=== PATIENT | male | born 1970 | race Hispanic/Latino ===

== ENCOUNTER 2020-08-05 10:07 | Emergency (ER) | payer OTHER ==
[2020-08-05 10:38] LABS: EOSINOPHILS % (AUTO) 1.3 % (0.0-8.0); HEMATOCRIT 43.2 % (42-54); LYMPHOCYTES % (AUTO) 14.2 % (21.0-51.0); MEAN CORPUSCULAR HEMOGLOBIN 32.5 pg (27.0-33.0); MEAN CORPUSCULAR VOLUME 95.6 fL (79-99); MONOCYTES % (AUTO) 6.9 % (3.0-13.0); NEUTROPHILS % (AUTO) 76.2 % (40.0-77.0); PLATELET COUNT (AUTO) 218 K/uL (130-400); RED BLOOD CELL COUNT(AUTO) 4.52 MIL/uL (4.50-6.20); RED CELL DISTRIBUTION WIDTH 12.7 % (11.0-15.5)
[2020-08-05 10:39] LABS: BASOPHILS % (AUTO) 1.2 % (0.0-5.0)
[2020-08-05 10:53] LABS: CREATININE 0.7 mg/dL (0.5-1.5); POTASSIUM 3.7 mmol/L (3.5-5.1)
[2020-08-05 10:57] LABS: BILIRUBIN,TOTAL 0.9 mg/dL (0.2-1.0); TOTAL PROTEIN, SERUM 7.8 g/dL (6.0-8.3)
[2020-08-05] MEDS ORDERED: LORAZEPAM 2 MG/ML 1 ML VIAL ONE (12:22)
[2020-08-05] MEDS ORDERED: M.V.I. IV [ADULT] 10 ML, THIAMINE HCL 100 MG, FOLIC ACID 1 MG in SODIUM CHLORIDE 0.9% 1... IV SCH (12:45)
== END 2020-08-05 17:56 | disposition home or self-care (01) ==
LOC: EDH 10:07
DX: F10.239 Alcohol dependence with withdrawal, unspecified (principal); F41.9 Anxiety disorder, unspecified; F10.20 Alcohol dependence, uncomplicated
CPT/HCPCS: 36415; 71045; 80053; 84484; 85025; 93005; 96365; 96366; 96375; 99285; J2060; J3411; J3490; J7030

== ENCOUNTER 2022-03-16 18:34 | Observation (INO) | payer OTHER ==
[~2022-03-16] VITALS: Ht 160 cm; Wt 89.0 kg
[2022-03-16] MEDS ORDERED: CHLORDIAZEPOXIDE HCL 25 MG CAP PO ONE (19:30)
[2022-03-16 19:48] LABS: BASOPHILS % (AUTO) 1.1 % (0.0-5.0); EOSINOPHILS % (AUTO) 0.5 % (0.0-8.0); LYMPHOCYTES % (AUTO) 17.4 % (21.0-51.0); MEAN CORPUSCULAR HEMOGLOBIN 32.4 pg (27.0-33.0); MEAN CORPUSCULAR HGB CONC 34.9 g/dL (32.0-36.0); MEAN CORPUSCULAR VOLUME 92.9 fL (79-99); MONOCYTES % (AUTO) 7.4 % (3.0-13.0); NEUTROPHILS % (AUTO) 73.2 % (40.0-77.0); PLATELET COUNT (AUTO) 188 K/uL (130-400); RED BLOOD CELL COUNT(AUTO) 4.63 MIL/uL (4.50-6.20); RED CELL DISTRIBUTION WIDTH 12.5 % (11.0-15.5); WHITE BLOOD COUNT (AUTO) 7.6 K/uL (4.8-10.8)
[2022-03-16 19:59] LABS: CARBON DIOXIDE 24 mmol/L (21-32); CHLORIDE 99 mmol/L (101-111); CREATININE 0.7 mg/dL (0.5-1.5); GLOMERULAR FILTR. RATE CALC 127 mL/min (>60); GLUCOSE,RANDOM 112 mg/dL (70-105); POTASSIUM 3.6 mmol/L (3.5-5.1); SODIUM SERUM 136 mmol/L (136-145); UREA NITROGEN, BLOOD 12 mg/dL (7-18)
[2022-03-16 20:00] LABS: APPEARANCE,URINE CLEAR (CLEAR); BILIRUBIN,URINE NEGATIVE (NEGATIVE); COLOR,URINE YELLOW (YELLOW); GLUCOSE, URINE (UA) NEGATIVE (NEGATIVE); KETONES,URINE 100 mg/dL (NEGATIVE); LEUKOCYTE ESTERASE ,URINE NEGATIVE Leu/uL (NEGATIVE); NITRATE,URINE NEGATIVE (NEGATIVE); OCCULT BLOOD,URINE NEGATIVE (NEGATIVE); PROTEIN,URINE 30 mg/dL (NEGATIVE)
[2022-03-16 20:04] LABS: BACTERIA,URINE RARE /HPF (None Seen); MUCUS,URINE RARE LPF (None Seen); SQUAMOUS EPITHELIAL CELL,UR RARE /HPF (0-2)
[2022-03-16 20:13] LABS: ALANINE AMINOTRANSFERASE 163 U/L (12-78); ALBUMIN 3.9 g/dL (3.5-5.0); ALCOHOL, BLOOD < 3 mg/dL (0-10); ASPARTATE AMINOTRANSFERASE 82 U/L (10-37); TOTAL PROTEIN, SERUM 8.1 g/dL (6.0-8.3)
[2022-03-16 20:15] LABS: ACETAMINOPHEN < 1 mcg/mL (10-29); SALICYLATE < 2.8 mg/dL (2.8-20.0)
[2022-03-16 20:17] LABS: CREATINE KINASE, TOTAL 486 U/L (21-232)
[2022-03-16] MEDS ORDERED: 0.9%NACL 1000ML 1,000 ML IV ONE (20:30)
[2022-03-16] MEDS ORDERED: LORAZEPAM 2 MG/ML 1 ML VIAL IVP PRN (22:00)
[2022-03-16] MEDS ORDERED: THIAMINE HCL 100 MG, FOLIC ACID 1 MG, M.V.I. IV [ADULT] 10 ML in 0.9%NACL 1000ML 1,000 ML IV SCH (22:00)
[2022-03-16] MEDS ORDERED: ACETAMINOPHEN 325 MG TAB PO PRN ×2 (22:00)
[2022-03-16] MEDS ORDERED: ONDANSETRON 4MG INJ IV PRN (22:00)
[2022-03-16] MEDS ORDERED: LACTULOSE 20 GM/30 ML UDCUP PO PRN (22:00)
[2022-03-16] MEDS ORDERED: PHARMACY COMMUNICATION MISC PRN (22:00)
[2022-03-16] MEDS ORDERED: CHLORDIAZEPOXIDE HCL 25 MG CAP PO PRN (22:00)
[2022-03-16] MEDS ORDERED: THIAMINE HCL 100 MG/ML 2ML VIAL ONE (23:19)
[2022-03-16] MEDS ORDERED: M.V.I. IV [ADULT] 10 ML VIAL IV ONE (23:19)
[2022-03-16] MEDS ORDERED: FOLIC ACID 5 MG/ML VIAL ONE (23:20)
[2022-03-17 05:00] VITALS: BP 140/88
[2022-03-17 08:00] VITALS: BP 151/102
[2022-03-17] MEDS ORDERED: ENOXAPARIN SODIUM 40 MG/0.4 ML SYRINGE SQ SCH (09:00)
[2022-03-17] MEDS ORDERED: FAMOTIDINE 20MG TAB PO SCH (09:00)
[2022-03-17] MEDS ORDERED: LOSARTAN 50 MG TABLET PO SCH (11:00)
[2022-03-17 12:00] VITALS: BP 143/102
[2022-03-17] MEDS ORDERED: ALPRAZOLAM 0.5 MG TABLET PO ONE (13:00)
== END 2022-03-17 13:30 | disposition home or self-care (01) ==
LOC: EDH 18:34 → EDHIP 18:35 → INTOOBSV 18:35 → 3CH 03-17 04:34
PROVIDERS: ADMIT Hospitalist; ATTEND Hospitalist
DX: F10.239 Alcohol dependence with withdrawal, unspecified (principal); M62.82 Rhabdomyolysis; F41.9 Anxiety disorder, unspecified; R74.8 Abnormal levels of other serum enzymes; Z79.899 Other long term (current) drug therapy; Z86.16 Personal history of COVID-19; Z98.890 Other specified postprocedural states
CPT/HCPCS: 96361 ×2; 96365; 99285; 82550; 80053; 85025; 81001; 36415; 93005; 96366 ×2; G0378 ×18; G0481; J7030 ×2; J3411 ×2; J3490 ×2